=== PATIENT | female | born 1990 | race Two or more races ===

== ENCOUNTER → 2017-06-05 | Outpatient (CLI) | payer OTHER | END | disposition home or self-care (01) | LOC: LAB 14:48 | PROVIDERS: ATTEND Preventive Medicine Preventive Medicine/Occupational Environmental Medicine | DX: Z02.1 Encounter for pre-employment examination (principal) | CPT/HCPCS: 36415; 86706 ==

== ENCOUNTER → 2018-09-10 | Outpatient (CLI) | payer BC ==
[2018-09-10 08:08] LABS: Basophils # (auto) 0 uL; Eosinophils # (auto) 0.1 uL; Hemoglobin 14.2 g/dL (12.2-16.2); Monocytes # (auto) 0.4 uL
[2018-09-10 08:09] LABS: Basophils % (auto) 0.6 % (0.0-2.0); Eosinophils % (auto) 1.3 % (0.0-7.0); Lymphocytes # (auto) 1.4 uL; Mean Corpuscular Hgb Conc. 33.1 g/dL (32.0-36.0); Mean Corpuscular Volume 78.6 fL (80.0-100.0); Monocytes % (auto) 5.7 % (0.0-12.0); Neutrophils # (auto) 4.4 uL; Neutrophils % (auto) 70.4 % (37.0-80.0); Platelet Count (auto) 278 10^3/uL (140-450); Red Blood Cells 5.47 10^6/uL (4.0-5.20); White Blood Cell 6.2 10^3/uL (4.4-10.8)
[2018-09-10 08:39] LABS: Alanine Aminotransferase 24 U/L (13-56); Albumin 4.1 g/dL (3.4-5.0); Anion Gap 5 (5-15); BUN/Creatinine Ratio 14.9; Blood Urea Nitrogen 10 mg/dL (7-18); Carbon Dioxide 26 mmol/L (21-32); Chloride 106 mmol/L (98-107); GFR African American > 60 mL/min; GFR Non-African American > 60 mL/min; Glucose 94 mg/dL (74-106); Sodium 137 mmol/L (136-145); Uric Acid 4.2 mg/dL (2.6-6.0)
[2018-09-10 08:51] LABS: Alkaline Phosphatase 122 U/L (45-117); Aspartate Aminotransferase 10 U/L (15-37); Bilirubin, Total 0.3 mg/dL (0.2-1.0); Cholesterol 152 mg/dL (< 200); HDL Cholesterol 47 mg/dL (40-59); LDL Cholesterol 96 mg/dL (< 100); Total Protein 8.1 g/dL (6.4-8.2); Triglycerides 63 mg/dL (< 150)
[2018-09-11 05:05] LABS: RPR Non Reactive (Non Reactive)
[2018-09-13 12:56] LABS: Hepatitis B Core Total AB Negative
[2018-09-13 13:03] LABS: Hepatitis B Surface Antigen Negative (Negative)
[2018-09-13 14:02] LABS: Hepatitis B Core IgM Negative; Hepatitis B Surface Antibody Positive
== END | disposition home or self-care (01) ==
LOC: LAB 07:30
PROVIDERS: ATTEND Internal Medicine
DX: M25.50 Pain in unspecified joint (principal); Z77.21 Contact with and (suspected) exposure to potentially hazardous body fluids
CPT/HCPCS: 36415; 80053; 80061; 84439; 84443; 84550; 85025; 85652; 86200; 86431; 86592; 86703; 86704; 86705; 86706; 86803; 87340

== ENCOUNTER → 2018-10-19 | Outpatient (CLI) | payer BC | END | disposition home or self-care (01) | LOC: LAB 15:00 | PROVIDERS: ATTEND Physician Assistant | DX: L82.1 Other seborrheic keratosis (principal) ==

== ENCOUNTER → 2020-04-10 | Outpatient (CLI) | payer OTHER | END | disposition home or self-care (01) | LOC: LAB 17:58 | PROVIDERS: ATTEND Physician Assistant | DX: Z20.828 Contact with and (suspected) exposure to other viral communicable diseases (principal) | CPT/HCPCS: C9803; U0003 ==

== ENCOUNTER → 2020-04-17 | Outpatient (CLI) | payer BC ==
[2020-04-17 07:59] LABS: Basophils # (auto) 0 10 ^3/uL (0-0.2); Eosinophils # (auto) 0.1 10 ^3/uL (0-0.8); Hemoglobin 13.5 g/dL (12.2-16.2); Lymphocytes # (auto) 2.6 10 ^3/uL (0.4-5.4); Monocytes # (auto) 0.7 10 ^3/uL (0-1.3); Red Cell Distribution Width 15.6 % (11.8-14.3)
[2020-04-17 08:01] LABS: Basophils % (auto) 0.5 % (0.0-2.0); Hematocrit 40.8 % (36.0-46.0); Lymphocytes % (auto) 41.8 % (10.0-50.0); Mean Corpuscular Volume 78.6 fL (80.0-100.0); Monocytes % (auto) 11.5 % (0.0-12.0); Neutrophils # (auto) 2.8 10 ^3/uL (1.6-8.6); Neutrophils % (auto) 45.2 % (37.0-80.0); Nucleated Red Blood Cells % 0.2 %; Platelet Count (auto) 171 10^3/uL (140-450); Red Blood Cells 5.19 10^6/uL (4.0-5.20); White Blood Cell 6.1 10^3/uL (4.4-10.8)
[2020-04-17 08:30] LABS: Albumin 3.8 g/dL (3.4-5.0)
[2020-04-17 08:40] LABS: BUN/Creatinine Ratio 8.5; Bilirubin, Total 0.4 mg/dL (0.2-1.0); CRP High Sensitivity 1.86 mg/dL (< 0.3); Total Protein 7.5 g/dL (6.4-8.2)
== END | disposition home or self-care (01) ==
LOC: LAB 07:42
PROVIDERS: ATTEND Internal Medicine
DX: R53.83 Other fatigue (principal); R51 Headache
CPT/HCPCS: 36415; 80053; 80061; 82785; 84439; 84443; 85025; 85652; 86141

== ENCOUNTER → 2020-04-26 | Outpatient (CLI) | payer BC ==
[2020-04-26 09:32] LABS: Albumin 3.8 g/dL (3.4-5.0); Calcium 9.1 mg/dL (8.5-10.1); Potassium 4.2 mmol/L (3.5-5.1)
[2020-04-26 09:35] LABS: BUN/Creatinine Ratio 12.1; Bilirubin, Total 0.4 mg/dL (0.2-1.0)
== END | disposition home or self-care (01) ==
LOC: LAB 08:13
PROVIDERS: ATTEND Internal Medicine
DX: K76.0 Fatty (change of) liver, not elsewhere classified (principal); R16.1 Splenomegaly, not elsewhere classified
CPT/HCPCS: 36415; 80053; 83021; 83615; 85660

== ENCOUNTER → 2020-06-08 | Outpatient (CLI) | payer BC ==
[2020-06-08 07:59] LABS: Basophils # (auto) 0 10 ^3/uL (0-0.2); Eosinophils # (auto) 0.1 10 ^3/uL (0-0.8); Monocytes # (auto) 0.5 10 ^3/uL (0-1.3); Nucleated Red Blood Cells % 0.1 %; Platelet Count (auto) 340 10^3/uL (140-450); White Blood Cell 7.2 10^3/uL (4.4-10.8)
[2020-06-08 08:01] LABS: Basophils % (auto) 0.6 % (0.0-2.0); Eosinophils % (auto) 1.7 % (0.0-7.0); Hematocrit 38.1 % (36.0-46.0); Hemoglobin 12.3 g/dL (12.2-16.2); Lymphocytes # (auto) 2.6 10 ^3/uL (0.4-5.4); Lymphocytes % (auto) 35.6 % (10.0-50.0); Mean Corpuscular Hemoglobin 24.9 pg (28.0-32.0); Mean Corpuscular Hgb Conc. 32.4 g/dL (32.0-36.0); Monocytes % (auto) 6.4 % (0.0-12.0); Neutrophils % (auto) 55.7 % (37.0-80.0); Red Blood Cells 4.94 10^6/uL (4.0-5.20); Red Cell Distribution Width 14.4 % (11.8-14.3)
[2020-06-08 08:14] LABS: Calcium 9.2 mg/dL (8.5-10.1); Potassium 3.9 mmol/L (3.5-5.1)
[2020-06-08 08:18] LABS: BUN/Creatinine Ratio 13.8; Bilirubin, Total 0.3 mg/dL (0.2-1.0); Total Protein 7.7 g/dL (6.4-8.2)
[2020-06-11 10:48] LABS: Hepatitis B Surface Antibody Positive
[2020-06-11 11:12] LABS: Hepatitis A Total Antibody Positive
[2020-06-11 12:22] LABS: Hepatitis B Core Total AB Negative; Hepatitis B Surface Antigen Negative (Negative); Hepatitis C Antibody Negative (Negative)
== END | disposition home or self-care (01) ==
LOC: LAB 07:26
PROVIDERS: ATTEND Internal Medicine
DX: K76.9 Liver disease, unspecified (principal); R16.1 Splenomegaly, not elsewhere classified; R71.8 Other abnormality of red blood cells
CPT/HCPCS: 36415; 80053; 83615; 85025; 86664; 86704; 86706; 86708; 86803; 87340; 87497

== ENCOUNTER → 2020-09-15 | Outpatient (CLI) | payer BC ==
[2020-09-15 09:13] LABS: Basophils # (auto) 0 10 ^3/uL (0-0.2); Eosinophils # (auto) 0.1 10 ^3/uL (0-0.8); Lymphocytes # (auto) 1.9 10 ^3/uL (0.4-5.4); Monocytes # (auto) 0.4 10 ^3/uL (0-1.3); Neutrophils # (auto) 3.6 10 ^3/uL (1.6-8.6); Nucleated Red Blood Cells % 0.1 %; White Blood Cell 6.1 10^3/uL (4.4-10.8)
[2020-09-15 09:15] LABS: Basophils % (auto) 0.6 % (0.0-2.0); Eosinophils % (auto) 1.7 % (0.0-7.0); Hematocrit 32.6 % (36.0-46.0); Hemoglobin 10.6 g/dL (12.2-16.2); Lymphocytes % (auto) 31.6 % (10.0-50.0); Mean Corpuscular Hemoglobin 24.2 pg (28.0-32.0); Mean Corpuscular Hgb Conc. 32.7 g/dL (32.0-36.0); Monocytes % (auto) 6.7 % (0.0-12.0); Neutrophils % (auto) 59.4 % (37.0-80.0); Platelet Count (auto) 288 10^3/uL (140-450); Red Blood Cells 4.41 10^6/uL (4.0-5.20); Red Cell Distribution Width 18.3 % (11.8-14.3)
[2020-09-15 10:18] LABS: % Iron Saturation 5.9 % (15-50)
[2020-09-15 11:25] LABS: Albumin 3.6 g/dL (3.4-5.0); Calcium 8.6 mg/dL (8.5-10.1); Potassium 3.9 mmol/L (3.5-5.1)
[2020-09-15 11:29] LABS: BUN/Creatinine Ratio 15.3; Bilirubin, Total 0.2 mg/dL (0.2-1.0); Total Protein 7.3 g/dL (6.4-8.2)
[2020-09-15 12:47] LABS: Ferritin 4.5 ng/mL (10-322)
[2020-09-17 10:39] LABS: Folate (Folic Acid) 8.91 ng/mL (5.38-24)
== END | disposition home or self-care (01) ==
LOC: LAB 08:57
PROVIDERS: ATTEND Internal Medicine
DX: K76.9 Liver disease, unspecified (principal); R16.1 Splenomegaly, not elsewhere classified; R71.8 Other abnormality of red blood cells; B27.90 Infectious mononucleosis, unspecified without complication
CPT/HCPCS: 36415; 80053; 82607; 82728; 82746; 83540; 83550; 83615; 85025

== ENCOUNTER → 2020-10-17 | Outpatient (CLI) | payer BC, MEDICAID ==
[2020-10-17 07:46] LABS: Hemoglobin 11.4 g/dL (12.2-16.2); Red Cell Distribution Width 15.8 % (11.8-14.3); White Blood Cell 6.6 10^3/uL (4.4-10.8)
[2020-10-17 07:49] LABS: Hematocrit 34.6 % (36.0-46.0); Mean Corpuscular Hemoglobin 24.2 pg (28.0-32.0); Mean Corpuscular Hgb Conc. 32.9 g/dL (32.0-36.0); Mean Corpuscular Volume 73.5 fL (80.0-100.0); Platelet Count (auto) 348 10^3/uL (140-450); Red Blood Cells 4.72 10^6/uL (4.0-5.20)
[2020-10-17 08:11] LABS: Albumin 3.9 g/dL (3.4-5.0); Potassium 4.1 mmol/L (3.5-5.1)
[2020-10-17 08:14] LABS: BUN/Creatinine Ratio 15.9; Bilirubin, Total 0.2 mg/dL (0.2-1.0)
[2020-10-17 08:29] LABS: Ferritin 2.4 ng/mL (10-322); Folate (Folic Acid) 16.01 ng/mL (5.38-24)
[2020-10-17 12:17] LABS: Band Neutrophils % (manual) 0; Basophils % (manual) 0 (0.0-2.0); Blast Cells 0; Metamyelocytes % 0; Myelocytes % 0; Promyelocytes % 0; Reactive Lymphocytes 0
[2020-10-17 12:33] LABS: Eosinophils % (manual) 1 (0-7); Lymphocytes % (manual) 28 (10.0-50.0); Monocytes % (manual) 7 (0-12)
== END | disposition home or self-care (01) ==
LOC: LAB 07:19
PROVIDERS: ATTEND Internal Medicine
DX: K76.9 Liver disease, unspecified (principal); R16.1 Splenomegaly, not elsewhere classified; R71.8 Other abnormality of red blood cells; B27.90 Infectious mononucleosis, unspecified without complication
CPT/HCPCS: 36415; 80053; 82607; 82728; 82746; 83540; 83550; 83615; 85025; 85027

== ENCOUNTER 2021-01-02 07:42 | Day surgery (SDC) | payer BC, MEDICAID ==
[2020-12-28 10:07] LABS: Basophils # (auto) 0 10 ^3/uL (0-0.2); Basophils % (auto) 0.5 % (0.0-2.0); Eosinophils # (auto) 0.1 10 ^3/uL (0-0.8); Hematocrit 39.7 % (36.0-46.0); Hemoglobin 12.7 g/dL (12.2-16.2); Lymphocytes % (auto) 28.8 % (10.0-50.0); Mean Corpuscular Hemoglobin 23.2 pg (28.0-32.0); Mean Corpuscular Hgb Conc. 31.9 g/dL (32.0-36.0); Mean Corpuscular Volume 72.8 fL (80.0-100.0); Monocytes # (auto) 0.4 10 ^3/uL (0-1.3); Neutrophils # (auto) 4.5 10 ^3/uL (1.6-8.6); Neutrophils % (auto) 63.7 % (37.0-80.0); Nucleated Red Blood Cells % 0.1 %; Platelet Count (auto) 315 10^3/uL (140-450); Red Blood Cells 5.45 10^6/uL (4.0-5.20); Red Cell Distribution Width 21.9 % (11.8-14.3); White Blood Cell 7.1 10^3/uL (4.4-10.8)
[2020-12-28 10:10] LABS: Urine Bacteria NONE SEEN /hpf (None Seen); Urine Blood TRACE /uL (Negative); Urine Mucus FEW (None Seen); Urine WBC 2 /hpf (0 - 5)
[2020-12-28 10:20] LABS: INR 1.03 (0.9-1.15)
[2020-12-28 10:23] LABS: BUN/Creatinine Ratio 11.3; Bilirubin, Total 0.3 mg/dL (0.2-1.0); Calcium 8.8 mg/dL (8.5-10.1); Total Protein 7.7 g/dL (6.4-8.2)
[~2021-01-02] VITALS: Ht 157.5 cm; Wt 72.6 kg
[~2021-01-02 07:42] MED LIST: LORA-622 PO; MEDR150I23 IM
[2021-01-02] MEDS ORDERED: ceFAZolin 1GM/50ML 50 ML IV ONE (07:53)
[2021-01-02] MEDS ORDERED: BUPIVACAINE 0.25% INJ 50ML VIAL ONE (09:01)
[2021-01-02] MEDS ORDERED: LIDOCAINE W/ EPINEPHRINE 1% 20ML VIAL ONE (09:01)
[2021-01-02] MEDS ORDERED: fentaNYL CITRATE 100 MCG/2 ML VL ONE (09:41)
[2021-01-02] MEDS ORDERED: MEPERIDINE HCL (25 MG/ML) 1ML VIAL ONE (09:41)
[2021-01-02] MEDS ORDERED: MIDAZOLAM HCL 1MG/1ML-2 ML VIAL ONE (09:41)
[2021-01-02] MEDS ORDERED: PROPOFOL 10 MG/ML 20 ML IV ONE (09:58)
[2021-01-02 11:20] VITALS: BP 118/77
== END 2021-01-02 11:35 | disposition home or self-care (01) ==
LOC: SUR 07:42
PROVIDERS: ATTEND Surgery
DX: R59.1 Generalized enlarged lymph nodes (principal); Z20.822 Contact with and (suspected) exposure to COVID-19; Z98.890 Other specified postprocedural states; Z79.899 Other long term (current) drug therapy
CPT/HCPCS: 36415; 38500; 80053; 81001; 84702; 85025; 85610; 85730; 88302; 88342; J0690; J2175; J2250; J2704; J3010; J3490; U0003

== ENCOUNTER → 2021-02-05 | Outpatient (CLI) | payer BC, MEDICAID ==
[2021-02-05 08:00] LABS: Basophils # (auto) 0 10 ^3/uL (0-0.2); Basophils % (auto) 0.5 % (0.0-2.0); Eosinophils # (auto) 0.1 10 ^3/uL (0-0.8); Eosinophils % (auto) 1.8 % (0.0-7.0); Hematocrit 38.7 % (36.0-46.0); Hemoglobin 12.8 g/dL (12.2-16.2); Lymphocytes # (auto) 2.5 10 ^3/uL (0.4-5.4); Lymphocytes % (auto) 30.4 % (10.0-50.0); Mean Corpuscular Hemoglobin 25.5 pg (28.0-32.0); Mean Corpuscular Volume 77.4 fL (80.0-100.0); Monocytes # (auto) 0.6 10 ^3/uL (0-1.3); Monocytes % (auto) 6.7 % (0.0-12.0); Neutrophils % (auto) 60.6 % (37.0-80.0); Platelet Count (auto) 284 10^3/uL (140-450); Red Cell Distribution Width 23.8 % (11.8-14.3); White Blood Cell 8.2 10^3/uL (4.4-10.8)
[2021-02-05 08:27] LABS: Potassium 4.2 mmol/L (3.5-5.1)
[2021-02-05 08:40] LABS: Albumin 3.9 g/dL (3.4-5.0); BUN/Creatinine Ratio 22.6; Bilirubin, Total 0.3 mg/dL (0.2-1.0); Calcium 8.9 mg/dL (8.5-10.1); Total Protein 7.6 g/dL (6.4-8.2)
[2021-02-05 09:27] LABS: % Iron Saturation 19.5 % (15-50)
[2021-02-05 10:52] LABS: Ferritin 88.1 ng/mL (10-322); Folate (Folic Acid) 6.47 ng/mL (5.38-24)
== END | disposition home or self-care (01) ==
LOC: LAB 07:08
PROVIDERS: ATTEND Internal Medicine
DX: R16.1 Splenomegaly, not elsewhere classified (principal); K76.9 Liver disease, unspecified; R71.8 Other abnormality of red blood cells; B27.90 Infectious mononucleosis, unspecified without complication
CPT/HCPCS: 36415; 80053; 82607; 82728; 82746; 83540; 83550; 83615; 85025

== ENCOUNTER → 2021-08-03 | Outpatient (CLI) | payer BC, MEDICAID ==
[2021-08-03 09:49] LABS: Basophils # (auto) 0 10 ^3/uL (0-0.2); Basophils % (auto) 0.5 % (0.0-2.0); Eosinophils # (auto) 0.1 10 ^3/uL (0-0.8); Hematocrit 41.2 % (36.0-46.0); Hemoglobin 13.6 g/dL (12.2-16.2); Lymphocytes # (auto) 1.8 10 ^3/uL (0.4-5.4); Lymphocytes % (auto) 24.6 % (10.0-50.0); Mean Corpuscular Hemoglobin 27.4 pg (28.0-32.0); Mean Corpuscular Volume 83.1 fL (80.0-100.0); Monocytes # (auto) 0.5 10 ^3/uL (0-1.3); Monocytes % (auto) 6.7 % (0.0-12.0); Neutrophils # (auto) 4.8 10 ^3/uL (1.6-8.6); Neutrophils % (auto) 67.2 % (37.0-80.0); Nucleated Red Blood Cells % 0.1 %; Red Blood Cells 4.96 10^6/uL (4.0-5.20); White Blood Cell 7.2 10^3/uL (4.4-10.8)
[2021-08-03 12:06] LABS: Thyroid Stimulating Hormone 1.31 uIU/mL (0.358-3.74)
[2021-08-03 13:00] LABS: Albumin 4.1 g/dL (3.4-5.0); BUN/Creatinine Ratio 19.2; Bilirubin, Total 0.3 mg/dL (0.2-1.0); Calcium 9.1 mg/dL (8.5-10.1); Total Protein 7.2 g/dL (6.4-8.2)
== END | disposition home or self-care (01) ==
LOC: LAB 08:53
PROVIDERS: ATTEND Internal Medicine
DX: Z00.00 Encounter for general adult medical examination without abnormal findings (principal); R16.1 Splenomegaly, not elsewhere classified; K76.9 Liver disease, unspecified; R71.8 Other abnormality of red blood cells; B27.90 Infectious mononucleosis, unspecified without complication; R53.83 Other fatigue
CPT/HCPCS: 36415; 80053; 80061; 83615; 84443; 84550; 85025; 85652

== ENCOUNTER → 2021-09-02 | Outpatient (CLI) | payer BC, MEDICAID ==
[2021-09-02 08:20] LABS: Basophils # (auto) 0 10 ^3/uL (0-0.2); Basophils % (auto) 0.5 % (0.0-2.0); Eosinophils # (auto) 0.1 10 ^3/uL (0-0.8); Eosinophils % (auto) 1.5 % (0.0-7.0); Hematocrit 42.1 % (36.0-46.0); Lymphocytes # (auto) 2.1 10 ^3/uL (0.4-5.4); Lymphocytes % (auto) 29.1 % (10.0-50.0); Mean Corpuscular Hemoglobin 27.5 pg (28.0-32.0); Mean Corpuscular Hgb Conc. 33.3 g/dL (32.0-36.0); Mean Corpuscular Volume 82.4 fL (80.0-100.0); Monocytes # (auto) 0.6 10 ^3/uL (0-1.3); Monocytes % (auto) 7.6 % (0.0-12.0); Neutrophils # (auto) 4.4 10 ^3/uL (1.6-8.6); Neutrophils % (auto) 61.3 % (37.0-80.0); Nucleated Red Blood Cells % 0.1 %; Red Blood Cells 5.11 10^6/uL (4.0-5.20); Red Cell Distribution Width 13.7 % (11.8-14.3); White Blood Cell 7.2 10^3/uL (4.4-10.8)
[2021-09-02 10:07] LABS: Potassium 4.1 mmol/L (3.5-5.1)
[2021-09-02 10:16] LABS: Bilirubin, Total 0.3 mg/dL (0.2-1.0); CRP High Sensitivity 0.44 mg/dL (< 0.3); Calcium 8.9 mg/dL (8.5-10.1); Total Protein 7.8 g/dL (6.4-8.2)
== END | disposition home or self-care (01) ==
LOC: LAB 07:13
PROVIDERS: ATTEND Internal Medicine
DX: R16.1 Splenomegaly, not elsewhere classified (principal); K76.9 Liver disease, unspecified; R71.8 Other abnormality of red blood cells; B27.90 Infectious mononucleosis, unspecified without complication
CPT/HCPCS: 36415; 80053; 82785; 83615; 85025; 85652; 86141

== ENCOUNTER → 2022-04-10 | Outpatient (CLI) | payer BC, MEDICAID ==
[2022-04-10 08:56] LABS: Basophils # (auto) 0 10 ^3/uL (0-0.2); Basophils % (auto) 0.4 % (0.0-2.0); Eosinophils # (auto) 0.1 10 ^3/uL (0-0.8); Lymphocytes # (auto) 1.9 10 ^3/uL (0.4-5.4); Monocytes # (auto) 0.5 10 ^3/uL (0-1.3)
[2022-04-10 08:59] LABS: Eosinophils % (auto) 1.1 % (0.0-7.0); Hemoglobin 11.9 g/dL (12.2-16.2); Mean Corpuscular Hemoglobin 24.1 pg (28.0-32.0); Mean Corpuscular Hgb Conc. 31.5 g/dL (32.0-36.0); Mean Corpuscular Volume 76.5 fL (80.0-100.0); Monocytes % (auto) 7.5 % (0.0-12.0); Neutrophils # (auto) 4.7 10 ^3/uL (1.6-8.6); Red Blood Cells 4.96 10^6/uL (4.0-5.20); Red Cell Distribution Width 14.8 % (11.8-14.3); White Blood Cell 7.2 10^3/uL (4.4-10.8)
[2022-04-10 11:16] LABS: Potassium 4.1 mmol/L (3.5-5.1)
[2022-04-10 11:21] LABS: Calcium 9.4 mg/dL (8.5-10.1)
[2022-04-10 11:23] LABS: Bilirubin, Total 0.3 mg/dL (0.2-1.0)
[2022-04-11 07:06] LABS: Immunoglobulin G, Serum 1005 mg/dL (586-1602)
== END | disposition home or self-care (01) ==
LOC: LAB 08:40
PROVIDERS: ATTEND Internal Medicine
DX: R16.1 Splenomegaly, not elsewhere classified (principal); K76.9 Liver disease, unspecified; R71.8 Other abnormality of red blood cells; B27.90 Infectious mononucleosis, unspecified without complication
CPT/HCPCS: 36415; 80053; 82784; 83615; 85025

== ENCOUNTER → 2022-09-01 | Outpatient (CLI) | payer BC, MEDICAID ==
[2022-09-01 07:56] LABS: Basophils # (auto) 0 10 ^3/uL (0-0.2); Eosinophils # (auto) 0.1 10 ^3/uL (0-0.8); Mean Corpuscular Hemoglobin 24.6 pg (28.0-32.0); White Blood Cell 7.2 10^3/uL (4.4-10.8)
[2022-09-01 07:58] LABS: Basophils % (auto) 0.4 % (0.0-2.0); Eosinophils % (auto) 1.5 % (0.0-7.0); Hematocrit 34.2 % (36.0-46.0); Lymphocytes # (auto) 2.1 10 ^3/uL (0.4-5.4); Lymphocytes % (auto) 28.9 % (10.0-50.0); Mean Corpuscular Hgb Conc. 32.3 g/dL (32.0-36.0); Mean Corpuscular Volume 76.4 fL (80.0-100.0); Monocytes # (auto) 0.6 10 ^3/uL (0-1.3); Monocytes % (auto) 8.1 % (0.0-12.0); Neutrophils # (auto) 4.4 10 ^3/uL (1.6-8.6); Neutrophils % (auto) 61.1 % (37.0-80.0); Red Blood Cells 4.48 10^6/uL (4.0-5.20); Red Cell Distribution Width 14.1 % (11.8-14.3)
[2022-09-01 08:23] LABS: Albumin 3.7 g/dL (3.4-5.0); BUN/Creatinine Ratio 13.6; Potassium 4.1 mmol/L (3.5-5.1)
[2022-09-01 08:25] LABS: Bilirubin, Total 0.3 mg/dL (0.2-1.0); Total Protein 7.2 g/dL (6.4-8.2)
[2022-09-01 09:55] LABS: Folate (Folic Acid) 6.01 ng/mL (5.38-24)
== END | disposition home or self-care (01) ==
LOC: LAB 07:40
PROVIDERS: ATTEND Internal Medicine
DX: K76.9 Liver disease, unspecified (principal); R16.1 Splenomegaly, not elsewhere classified; R71.8 Other abnormality of red blood cells; B27.90 Infectious mononucleosis, unspecified without complication
CPT/HCPCS: 36415; 80053; 82607; 82728; 82746; 83540; 83550; 83615; 85025

== ENCOUNTER → 2022-11-13 | Outpatient (CLI) | payer BC, MEDICAID ==
[2022-11-13 07:43] LABS: Eosinophils # (auto) 0.1 10 ^3/uL (0-0.8); Mean Corpuscular Hemoglobin 23.6 pg (28.0-32.0)
[2022-11-13 07:46] LABS: Basophils # (auto) 0.1 10 ^3/uL (0-0.2); Basophils % (auto) 0.8 % (0.0-2.0); Eosinophils % (auto) 1.6 % (0.0-7.0); Hematocrit 35.9 % (36.0-46.0); Lymphocytes % (auto) 29.4 % (10.0-50.0); Mean Corpuscular Hgb Conc. 33.4 g/dL (32.0-36.0); Mean Corpuscular Volume 70.7 fL (80.0-100.0); Monocytes # (auto) 0.4 10 ^3/uL (0-1.3); Monocytes % (auto) 6.1 % (0.0-12.0); Neutrophils # (auto) 4.3 10 ^3/uL (1.6-8.6); Neutrophils % (auto) 62.1 % (37.0-80.0); Nucleated Red Blood Cells % 0.4 %; Red Blood Cells 5.08 10^6/uL (4.0-5.20); Red Cell Distribution Width 16.5 % (11.8-14.3); White Blood Cell 6.9 10^3/uL (4.4-10.8)
[2022-11-13 08:34] LABS: Albumin 3.7 g/dL (3.4-5.0); Calcium 9.2 mg/dL (8.5-10.1); Potassium 4.1 mmol/L (3.5-5.1)
[2022-11-13 08:38] LABS: BUN/Creatinine Ratio 13.4 (10.0-20.0); Bilirubin, Total 0.2 mg/dL (0.2-1.0); Total Protein 7.6 g/dL (6.4-8.2)
[2022-11-13 08:48] LABS: Ferritin 3.6 ng/mL (10-322)
[2022-11-13 08:49] LABS: Folate (Folic Acid) 6.09 ng/mL (5.38-24)
[2022-11-14 07:07] LABS: Immunoglobulin G, Serum 1069 mg/dL (586-1602)
== END | disposition home or self-care (01) ==
LOC: LAB 07:22
PROVIDERS: ATTEND Internal Medicine
DX: R16.1 Splenomegaly, not elsewhere classified (principal); K76.9 Liver disease, unspecified; R71.8 Other abnormality of red blood cells; B27.90 Infectious mononucleosis, unspecified without complication
CPT/HCPCS: 36415; 80053; 82306; 82607; 82728; 82746; 82784; 83540; 83550; 83615; 85025

== ENCOUNTER → 2022-11-24 | Outpatient (CLI) | payer BC, MEDICAID | END | disposition home or self-care (01) | LOC: LAB 09:46 | PROVIDERS: ATTEND Internal Medicine | DX: R16.1 Splenomegaly, not elsewhere classified (principal); K76.9 Liver disease, unspecified; R71.8 Other abnormality of red blood cells; B27.90 Infectious mononucleosis, unspecified without complication | CPT/HCPCS: 82270 ==

== ENCOUNTER 2023-04-03 11:06 | Day surgery (SDC) | payer BC, MEDICAID ==
[2023-04-01 12:25] LABS: Basophils # (auto) 0 10 ^3/uL (0-0.2); Eosinophils # (auto) 0.1 10 ^3/uL (0-0.8); Hemoglobin 11.8 g/dL (12.2-16.2); Lymphocytes % (auto) 26.7 % (10.0-50.0); Monocytes # (auto) 0.6 10 ^3/uL (0-1.3); Monocytes % (auto) 7.8 % (0.0-12.0)
[2023-04-01 12:26] LABS: Basophils % (auto) 0.4 % (0.0-2.0); Eosinophils % (auto) 1.2 % (0.0-7.0); Hematocrit 36.8 % (36.0-46.0); Lymphocytes # (auto) 2.2 10 ^3/uL (0.4-5.4); Mean Corpuscular Hgb Conc. 32.1 g/dL (32.0-36.0); Mean Corpuscular Volume 74.6 fL (80.0-100.0); Neutrophils # (auto) 5.2 10 ^3/uL (1.6-8.6); Neutrophils % (auto) 63.9 % (37.0-80.0); Red Blood Cells 4.93 10^6/uL (4.0-5.20); Red Cell Distribution Width 16.5 % (11.8-14.3); White Blood Cell 8.1 10^3/uL (4.4-10.8)
[2023-04-01 12:36] LABS: INR 1.09 (0.9-1.15); Partial Thromboplastin Time 31.4 SEC (24.5-34.5); Prothrombin Time 11.4 sec (9.3-11.8)
[2023-04-01 12:42] LABS: Albumin 3.9 g/dL (3.4-5.0); BUN/Creatinine Ratio 13.1 (10.0-20.0); Calcium 8.7 mg/dL (8.5-10.1); Potassium 4.2 mmol/L (3.5-5.1)
[2023-04-01 12:44] LABS: Bilirubin, Total 0.2 mg/dL (0.2-1.0); Total Protein 7.5 g/dL (6.4-8.2)
[~2023-04-03] VITALS: Ht 157.5 cm; Wt 72.6 kg
[~2023-04-03 11:06] MED LIST changes: +FERR-7 PO; +LIDOCAINE VISCOUS 2% 15ML UD ONE; +SODIUM CHLORIDE LOCK 10 ML ONE; +diphenhdrAMINE HCL 50 MG/1 ML VL ONE
[2023-04-03 14:00] VITALS: O2SAT 100
[2023-04-03] MEDS: fentaNYL CITRATE 100 MCG/2 ML VL ONE ×2 (14:04→14:07)
[2023-04-03] MEDS: MIDAZOLAM HCL 5 MG/ML-1ML VIAL ONE ×2 (14:04→14:07)
[2023-04-03 14:15] VITALS: TEMP 97.8
[2023-04-03 14:55] VITALS: BP 113/76; PULSE 65; RESP 15; O2SAT 100
== END 2023-04-03 15:00 | disposition home or self-care (01) ==
LOC: GI 11:06
PROVIDERS: ATTEND Internal Medicine Gastroenterology
DX: D64.9 Anemia, unspecified (principal)
CPT/HCPCS: 36415; 43239; 80053; 84702; 85025; 85610; 85730; J1200; J2250; J3010; J7030

== ENCOUNTER 2023-04-17 12:40 | Day surgery (SDC) | payer BC, MEDICAID ==
[2023-04-14 10:17] LABS: Basophils # (auto) 0 10 ^3/uL (0-0.2); Eosinophils # (auto) 0.1 10 ^3/uL (0-0.8); Monocytes # (auto) 0.5 10 ^3/uL (0-1.3); Monocytes % (auto) 6.3 % (0.0-12.0); Neutrophils # (auto) 5.3 10 ^3/uL (1.6-8.6); Nucleated Red Blood Cells % 0.1 %; Red Cell Distribution Width 16.9 % (11.8-14.3); White Blood Cell 8.3 10^3/uL (4.4-10.8)
[2023-04-14 10:20] LABS: Basophils % (auto) 0.6 % (0.0-2.0); Eosinophils % (auto) 1.2 % (0.0-7.0); Hematocrit 38.6 % (36.0-46.0); Hemoglobin 12.5 g/dL (12.2-16.2); INR 1.04 (0.9-1.15); Lymphocytes # (auto) 2.4 10 ^3/uL (0.4-5.4); Lymphocytes % (auto) 28.4 % (10.0-50.0); Mean Corpuscular Hgb Conc. 32.5 g/dL (32.0-36.0); Mean Corpuscular Volume 74.1 fL (80.0-100.0); Neutrophils % (auto) 63.5 % (37.0-80.0); Partial Thromboplastin Time 30.8 SEC (24.5-34.5); Prothrombin Time 10.9 sec (9.3-11.8); Red Blood Cells 5.22 10^6/uL (4.0-5.20)
[2023-04-14 10:51] LABS: Alanine Aminotransferase 12 U/L (7-40); Albumin 4.8 g/dL (3.2-4.8); Alkaline Phosphatase 121 U/L (46-116); Anion Gap 6.6 (5-15); Aspartate Aminotransferase < 8 U/L (13-40); BUN/Creatinine Ratio 10.6 (10.0-20.0); Blood Urea Nitrogen 7 mg/dL (9-23); Calcium 9.4 mg/dL (8.5-10.1); Carbon Dioxide 26.4 mmol/L (20-30); Chloride 106 mmol/L (98-107); Glucose 98 mg/dL (74-106); Potassium 4.2 mmol/L (3.5-5.1); Sodium 139 mmol/L (136-145); Total Protein 7.6 g/dL (5.7-8.2)
[2023-04-14 11:15] LABS: Bilirubin, Total 0.4 mg/dL (0.2-1.0)
[~2023-04-17] VITALS: Ht 157.5 cm; Wt 72.6 kg
[~2023-04-17 12:40] MED LIST changes: -LIDOCAINE VISCOUS 2% 15ML UD ONE; -SODIUM CHLORIDE LOCK 10 ML ONE; -diphenhdrAMINE HCL 50 MG/1 ML VL ONE
[2023-04-17] MEDS ORDERED: SODIUM CHLORIDE LOCK 10 ML ONE (13:10)
[2023-04-17] MEDS ORDERED: NALOXONE HCL 0.4 MG/ML VIAL ONE (13:17)
[2023-04-17] MEDS ORDERED: FLUMAZENIL 0.1 MG/ML INJ 10ML MDV IV ONE (13:17)
[2023-04-17 13:32] VITALS: PULSE 75; RESP 18; O2SAT 100
[2023-04-17] MEDS: diphenhdrAMINE HCL 50 MG/1 ML VL ONE ×2 (13:43→13:45)
[2023-04-17] MEDS: MIDAZOLAM HCL 5 MG/ML-1ML VIAL ONE ×4 (13:43→13:53)
[2023-04-17] MEDS: fentaNYL CITRATE 100 MCG/2 ML VL ONE ×3 (13:43→13:50)
[2023-04-17 14:03] VITALS: RESP 16; TEMP 98.6; O2SAT 97
[2023-04-17 14:37] VITALS: BP 105/60; PULSE 86; RESP 14; O2SAT 97
== END 2023-04-17 14:48 | disposition home or self-care (01) ==
LOC: GI 12:40
PROVIDERS: ATTEND Internal Medicine Gastroenterology
DX: D50.9 Iron deficiency anemia, unspecified (principal); K64.8 Other hemorrhoids; Z98.890 Other specified postprocedural states
CPT/HCPCS: 36415; 45378; 80053; 84702; 85025; 85610; 85730; J1200; J2250; J3010; J7030; 99152

== ENCOUNTER → 2024-07-01 | Outpatient (CLI) | payer BC ==
[2024-07-01 08:12] LABS: Basophils # (auto) 0 10 ^3/uL (0-0.2); Basophils % (auto) 0.5 % (0.0-2.0); Eosinophils # (auto) 0.1 10 ^3/uL (0-0.8); Eosinophils % (auto) 1.9 % (0.0-7.0); Hematocrit 40.6 % (36.0-46.0); Hemoglobin 13.7 g/dL (12.2-16.2); Lymphocytes # (auto) 1.9 10 ^3/uL (0.4-5.4); Lymphocytes % (auto) 26.2 % (10.0-50.0); Mean Corpuscular Hgb Conc. 33.6 g/dL (32.0-36.0); Mean Corpuscular Volume 83.3 fL (80.0-100.0); Monocytes # (auto) 0.6 10 ^3/uL (0-1.3); Monocytes % (auto) 8.1 % (0.0-12.0); Neutrophils # (auto) 4.6 10 ^3/uL (1.6-8.6); Neutrophils % (auto) 63.3 % (37.0-80.0); Nucleated Red Blood Cells % 0.1 %; Platelet Count (auto) 298 10^3/uL (140-450); Red Blood Cells 4.88 10^6/uL (4.0-5.20); Red Cell Distribution Width 14.3 % (11.8-14.3); White Blood Cell 7.3 10^3/uL (4.4-10.8)
[2024-07-01 08:55] LABS: Alanine Aminotransferase 22 U/L (7-40); Alkaline Phosphatase 96 U/L (46-116); Anion Gap 8 (5-15); BUN/Creatinine Ratio 9.5 (10.0-20.0); Blood Urea Nitrogen 7 mg/dL (9-23); Calcium 9.8 mg/dL (8.7-10.4); Carbon Dioxide 27 mmol/L (20-31); Chloride 107 mmol/L (98-107); Glucose 96 mg/dL (74-106); Potassium 4.1 mmol/L (3.5-5.1); Sodium 142 mmol/L (136-145)
[2024-07-01 08:56] LABS: Albumin 4.5 g/dL (3.2-4.8); Aspartate Aminotransferase 12 U/L (13-40); Bilirubin, Total 0.5 mg/dL (0.2-1.0); Total Protein 7.2 g/dL (5.7-8.2)
[2024-07-01 09:13] LABS: Ferritin 15.1 ng/mL (10-291)
== END | disposition home or self-care (01) ==
LOC: LAB 07:23
PROVIDERS: ATTEND Internal Medicine
DX: R71.8 Other abnormality of red blood cells (principal); R16.1 Splenomegaly, not elsewhere classified; K76.9 Liver disease, unspecified; B27.90 Infectious mononucleosis, unspecified without complication
CPT/HCPCS: 36415; 80053; 82607; 82728; 82746; 83540; 85025

== ENCOUNTER 2025-07-18 06:32 | Outpatient (CLI) | payer BC ==
[2025-07-18 07:12] LABS: Urine Protein, UAD Negative (Negative)
[2025-07-18 07:16] LABS: Hematocrit 39.7 % (36.0-46.0); Hemoglobin 13.4 g/dL (12.2-16.2); Mean Corpuscular Hemoglobin 27.7 pg (28.0-32.0); Mean Corpuscular Volume 81.9 fL (80.0-100.0); Nucleated Red Blood Cells % 0.0 %
[2025-07-18 07:38] LABS: Alanine Aminotransferase 22 U/L (7-40); Albumin 4.6 g/dL (3.2-4.8); Alkaline Phosphatase 99 U/L (46-116); Anion Gap 11 (5-15); BUN/Creatinine Ratio 11.1 (10.0-20.0); Blood Urea Nitrogen 9 mg/dL (9-23); Calcium 9.5 mg/dL (8.7-10.4); Carbon Dioxide 27 mmol/L (20-31); Chloride 106 mmol/L (98-107); Glucose 100 mg/dL (74-106); Potassium 4.1 mmol/L (3.5-5.1); Sodium 144 mmol/L (136-145); Total Protein 7.5 g/dL (5.7-8.2); Triglycerides 74 mg/dL (< 150)
[2025-07-18 07:39] LABS: Bilirubin, Total 0.5 mg/dL (0.2-1.0); Cholesterol 154 mg/dL (< 200); HDL Cholesterol 46 mg/dL (40-59)
[2025-07-18 08:41] LABS: Iron 98.0 ug/dL (50-170)
[2025-07-18 08:44] LABS: Ferritin 42.3 ng/mL (10-291); Total Iron Binding Capacity 295.0 ug/dL (250-425)
[2025-07-18 08:46] LABS: Free T4 (Free Thyroxine) 1.02 ng/dL (0.89-1.76)
[2025-07-21 19:06] LABS: Vitamin D-2 25-Hydroxy <1.0 ng/mL (.); Vitamin D-3 25-Hydroxy 12 ng/mL (.)
== END 2025-07-18 17:00 | disposition home or self-care (01) ==
LOC: LAB 06:32
PROVIDERS: ATTEND Internal Medicine
DX: E55.9 Vitamin D deficiency, unspecified (principal)
CPT/HCPCS: 36415; 80053; 80061; 81001; 82306; 82607; 82728; 83540; 83550; 84436; 84439; 84443; 85025